=== PATIENT | female | born 1985 | race Caucasian/White ===

== ENCOUNTER 2022-03-31 14:22 | Emergency (ER) | payer BC, SELFPAY ==
[2022-03-31 14:24] VITALS: BP 98/65; PULSE 64; RESP 14; TEMP 36.2; O2SAT 99; BMI 22.1
[2022-03-31 16:00] VITALS: BP 88/61; PULSE 61; RESP 16; O2SAT 99
[2022-03-31 16:09] VITALS: BP 89/65; BP 93/65; BP 94/67; PULSE 56; PULSE 59
--- NOTE | 2022-03-31 16:41 | EDS_ITS ---
HPI History of Present Illness Chief Complaint: Dizziness Informant: patient Onset/Context/Timing Onset: Today Context: Sudden Onset Timing: Intermittent and Lasts (10 to 20 seconds) Quality: Tingling Location: Left arm Worsened by: Nothing Relieved by: Nothing Narrative Narrative: Patient presents with palpitations, visual changes, and left arm tingling that occurred today. Patient states she was riding in a car when this happened. Patient states her vision went black. Patient states this was in both eyes. Patient states she felt like her heart was racing and her left arm started tingling. Patient states the symptoms lasted for approximately 10 to 20 seconds and gradually began to improve. Patient denies any headaches. Patient denies any other paresthesias or weakness. Patient denies any difficulty swallowing or difficulty talking. Patient denies any other symptoms. Prior similar symptoms: No PFSH PFSH Medical History no medical history no medical history Home Medications NK 03/31/22 [History Last Taken Unknown] Allergy/AdvReac Type Severity Reaction Status Date / Time No Known Allergies Allergy Verified 03/31/22 14:24 Surgical History no surgical history no surgical history Social History (Updated 03/31/22 @ 16:[address] Dannie Alvarado, DO) Smoking Status: Never smoker alcohol intake: current alcohol intake frequency: a few times a month ROS ROS ED Constitutional Constitutional ED: Denies chills or fever(s) Eyes Eyes: Denies blurry vision or change in vision ENT ENT ED: Denies rhinorrhea or sore throat Cardiovascular Cardiovascular: Reports palpitations and racing heartbeat; Denies chest pain Respiratory/Chest Respiratory/Chest: Denies cough or dyspnea Gastrointestinal Gastrointestinal: Denies nausea or vomiting Genitourinary Genitourinary ED: Denies dysuria or hematuria Musculoskeletal Musculoskeletal: Denies back pain or neck pain Integumentary Denies abscess or rash Neurologic Neurologic: Reports paresthesias LUE; Denies headache(s) or weakness Allergic/Immunologic Allergic/Immunologic ED: Denies mouth swelling or urticaria EXAM Physical Exam Const Vital Signs: 03/31/22 14:24 03/31/22 16:00 03/31/22 16:03 Temperature 97.1 F L Temperature Source Temporal Pulse Rate 64 61 Pulse Rate [Lying] Pulse Rate [Sitting (for 1 minute prior to obtaining)] Respiratory Rate 14 16 Respiratory Effort Normal Respiratory Pattern Normal Blood Pressure 98/65 88/61 L Blood Pressure [Lying] Blood Pressure [Sitting (for 1 minute prior to obtaining)] Blood Pressure [Standing (for 1 minute prior to obtaining)] Blood Pressure Mean 76 70 Blood Pressure Mean [Lying] Blood Pressure Mean [Sitting (for 1 minute prior to obtaining)] Blood Pressure Mean [Standing (for 1 minute prior to obtaining)] Pulse Ox 99 99 Oxygen Delivery Method Room Air Room Air 03/31/22 16:09 Temperature Temperature Source Pulse Rate Pulse Rate [Lying] 56 L Pulse Rate [Sitting (for 1 minute prior to obtaining)] 59 L Respiratory Rate Respiratory Effort Respiratory Pattern Blood Pressure Blood Pressure [Lying] 89/65 L Blood Pressure [Sitting (for 1 minute prior to obtaining)] 93/65 Blood Pressure [Standing (for 1 minute prior to obtaining)] 94/67 Blood Pressure Mean Blood Pressure Mean [Lying] 73 Blood Pressure Mean [Sitting (for 1 minute prior to obtaining)] 74 Blood Pressure Mean [Standing (for 1 minute prior to obtaining)] 76 Pulse Ox Oxygen Delivery Method Positive well nourished and well developed General Appearance ED: well developed HEENT Reports moist mucous membranes Neck supple and no JVD Resp normal respiratory effort and clear to auscultation bilaterally Cardio regular rate, regular rhythm and no murmurs GI normal to inspection, nondistended, normoactive bowel sounds and non-tender Palpation: soft Extremity normal to inspection General Extremety ED: Negative for edema or tenderness General Extremity: Negative for edema Neuro oriented x3, CN's II-XII intact bilaterally and no sensory deficits noted Sensorium / Orientation: alert Motor Exam: strength 5/5 throughout Psych mental status grossly normal Skin no rashes or lesions noted MDM MDM MDM Narrative Medical decision making narrative: Orthostatic vital signs were obtained and were within normal limits. CT scan of the brain was obtained. There is no acute intracranial abnormality. This was interpreted by the radiologist and reviewed by myself. PA and lateral chest x- ray was obtained. There are 2 views. On my interpretation, lung fabian are clear. There is normal cardiac silhouette. Bony thorax is normal. There is no acute process noted. Radiologist also interpreted the x-ray and agrees. EKG was obtained. On my interpretation, it showed a sinus bradycardia with a rate of 54. MD interval, QRS interval, and QTc intervals were all normal. Meridian was normal. There are no acute ST or T wave changes. CBC was within normal limits. Comprehensive metabolic profile was within normal limits. High-sensitivity troponin was normal. Patient is feeling better on reevaluation. Patient was a dvised of the findings. Patient was instructed to follow-up with her primary care physician in 3 to 5 days for reevaluation. Patient understood and was agreeable with the plan. All questions were answered. Lab Data Attestation: I reviewed the patient's lab results. Labs: Laboratory Results - last 24 hr 03/31/22 03/31/22 17:00 17:00 WBC 8.9 RBC 4.22 Hgb 13.3 Hct 40.3 MCV 95.5 MCH 31.5 MCHC 33.0 RDW Std Deviation 42.2 RDW Coeff of Sharyn 12.1 Plt Count 258 MPV 9.4 Immature Gran % (Auto) 0.200 Neut % (Auto) 78.2 H Lymph % (Auto) 15.8 L Pima % (Auto) 5.1 Eos % (Auto) 0.4 Baso % (Auto) 0.3 Absolute Neuts (auto) 7.0 Absolute Lymphs (auto) 1.41 Nucleated RBC % 0 Sodium 138 Potassium 3.8 Chloride 107 Carbon Dioxide 25.0 Anion Gap 6 BUN 15 Creatinine 0.77 Estim Creat Clear Calc 81.95 Est GFR (MDRD) Af Amer 108 Est GFR (MDRD) Non-Af 89 BUN/Creatinine Ratio 19.5 Glucose 91 Calcium 8.7 Total Bilirubin 0.70 AST 19 ALT 18 Alkaline Phosphatase 43 L Troponin I High Sens < 3 L Total Protein 6.8 Albumin 3.7 Globulin 3.1 Albumin/Globulin Ratio 1.2 Radiography Chest X-Ray - ED: 2 View, Read by ED Physician, Read by Radiologist, Normal and No Acute Disease Diagnostic Testing: Clinical Impression(s) from Imaging Studies Brain CT 03/31/22 16:45 IMPRESSION: Normal unenhanced CT scan of the brain. If concern for acute infarct MRI recommended Electronically Signed: Abundio Diana MD at 17:47 EDT Reading Location ID and State: [facility] / [place] , Service support , Chest X-Ray 03/31/22 17:39 IMPRESSION: Mild hyperinflation. No acute cardiopulmonary pathology Electronically Signed: Abundio Diana MD at 17:53 EDT Reading Location ID and State: [facility] / [place] , Service support , EKG Initial EKG: Attestation: I personally reviewed and interpreted this EKG as follows: Interpretation: No Acute Injury Pattern and Sinus Bradycardia (54) Prior EKG tracings: not available for review Prior: No Prior Discharge Plan Triage Chief Complaint: Dizziness ED Provider: Dannie Alvarado Dx/Rx/DC Orders Clinical Impression: TIA (transient ischemic attack) Instructions: ED TIA: Transient Ischemic Attack Prescriptions: No Action NK Primary Care Provider: Care Physician,No Primary Referrals: Rema Welsh DO [Med Staff - [facility]] - 3-5 Days Care Physician,No Primary [Primary Care Provider] - Disposition Disposition: Home, Self Care
--- NOTE | 2022-03-31 16:45 | EKG12_ITS ---
Test Reason : Blood Pressure : / mmHG Vent. Rate : 054 BPM Atrial Rate : 054 BPM P-R Int : 112 ms QRS Dur : 088 ms QT Int : 456 ms P-R-T Axes : 056 081 055 degrees QTc Int : 432 ms Sinus bradycardia Otherwise normal ECG Confirmed by RONEL CATALAN, LORA ([id number]), greeting card editor AYAD TAMAYO ([id number]) on 04/01/2022 1:58:57 PM Referred By: Confirmed By:LORA RODNEY MD
--- NOTE | 2022-03-31 16:45 | CT_ITS ---
STUDY: CT BRAIN WITHOUT CONTRAST REASON FOR EXAM: Female, 36 years old. Paresthesias RADIATION DOSAGE (If Supplied By Facility): CTDIvol = ( 44.99 ) mGy, DLP = ( 762.36 ) mGycm TECHNIQUE: Transaxial CT imaging of the brain was performed without administration of intravenous contrast material. Individualized dose optimization techniques were used for this CT. COMPARISON: No relevant priors. FINDINGS: Normal soft tissue structures. Normal calvarium. Normal size ventricles and extra-axial spaces for the patient''s age. Normal white matter tracts of the cerebral hemispheres. Normal basal ganglia and thalami. Normal brainstem. Normal cerebellum. There is no intracranial hemorrhage. There are no findings of an acute ischemic infarction. Normal visualized paranasal sinuses. CT/Brain/Head without Contrast IMPRESSION: Normal unenhanced CT scan of the brain. If concern for acute infarct MRI recommended Electronically Signed: Abundio Diana MD at 17:47 EDT ,
[2022-03-31 17:10] LABS: Absolute Lymphocyte Count 1.41 X10^3/uL (0.83-4.51); Basophil# 0.03 X10^3/uL; Basophil% 0.3 % (0-1); Eosinophil# 0.04 X10^3/uL; Eosinophils% 0.4 % (0-5); Hematocrit 40.3 % (37-47); Hemoglobin 13.3 g/dL (12.0-15.0); Lymphocyte # 1.41 X10^3/ul (0.83-4.51); Lymphocyte % 15.8 % (19-41); Mean Corpuscular Hgb 31.5 pg (27.0-32.0); Mean Corpuscular Volume 95.5 fL (81-99); Mean Platelet Vol. 9.4 fl (6.2-12.0); Monocyte# 0.45 X10^3/uL; Monocyte% 5.1 % (0-10); NRBC Flagged by Analyzer 0 % (0-5); Neutrophil # 6.95 X10^3/uL (2.7-7.7); Neutrophil % 78.2 % (47-70); Platelet Count 258 K/mm3 (150-450); RBC Distribution Width CV 12.1 % (11.6-14.6); RBC Distribution Width SD 42.2 fl (35.1-43.9); Red Blood Count 4.22 M/mm3 (4.2-5.4); White Blood Count 8.9 K/mm3 (4.4-11.0)
[2022-03-31 17:35] LABS: ALB/GLOB Ratio 1.2 RATIO (0.9-2.4); AST(SGOT) 19 U/L (15-37); Alanine Aminotransfer ALT/SGPT 18 U/L (13-56); Albumin, Serum 3.7 g/dL (3.2-5.0); Alkaline Phosphatase 43 U/L (45-117); Anion Gap 6 (5-15); BUN 15 mg/dL (7-18); BUN/Creat Ratio 19.5 RATIO (10-20); Calcium,Total 8.7 mg/dL (8.5-10.1); Chloride 107 mmol/L (98-107); Creatinine, Serum 0.77 mg/dL (0.55-1.02); EST Glomerular Filtration Rate 89 mL/min (>60); Est Glom Filt Rate - Afr Amer 108 mL/min (>60); Estimated Creatinine Clearance 81.95 ml/min; Globulin 3.1 g/dL (2.2-4.2); Glucose 91 mg/dL (74-106); Potassium 3.8 mmol/L (3.5-5.1); Protein, Total 6.8 g/dL (6.4-8.2); Sodium Level 138 mmol/L (136-145); Troponin-I HS < 3 pg/mL (3.0-54.0)
--- NOTE | 2022-03-31 17:39 | RAD_ITS ---
STUDY: X-RAY CHEST REASON FOR EXAM: Female, 36 years old. Palpitations TECHNIQUE: PA and lateral COMPARISON: None. FINDINGS: Lungs are mildly hyperinflated but clear.. There is no demonstrated pleural abnormality. Normal size heart. Normal mediastinum and william. Normal visualized pulmonary arteries. Normal visualized aortic arch and descending thoracic aorta. Normal visualized thoracic spine. Normal visualized ribs, clavicles, and shoulders. There is no demonstrated abnormality of the visualized soft tissue structures of the upper abdomen. RAD/Chest PA and Lateral IMPRESSION: Mild hyperinflation. No acute cardiopulmonary pathology Electronically Signed: Abundio Diana MD at 17:53 EDT ,
[2022-03-31 18:22] VITALS: BP 125/77; PULSE 62; RESP 15; O2SAT 97
== END 2022-03-31 18:23 | disposition home or self-care (01) ==
PROVIDERS: Emergency Provider Emergency Medicine; Visit Provider Emergency Medicine
DX: G45.9 Transient cerebral ischemic attack, unspecified (principal); R00.1 Bradycardia, unspecified
CPT/HCPCS: 70450; 71046; 80053; 84484; 85025; 93005; 99285; A4216